=== PATIENT | male | born 1995 | race Caucasian/White ===

== ENCOUNTER 2017-01-13 14:49 | Emergency (ER) | payer BC ==
[2017-01-13 15:02] VITALS: BP 141/81
--- NOTE | 2017-01-13 15:27 | EDM.PDOC ---
ED HPI GENERAL MEDICAL PROBLEM - General Chief Complaint: General Stated Complaint: ABCESS Time Seen by Provider: 01/13/17 15:10 Source of Information: Reports: Patient History Limitations: Reports: No limitations - History of Present Illness INITIAL COMMENTS - FREE TEXT/NARRATIVE: HISTORY AND PHYSICAL: History of present illness: [Patient comes to the emergency room with a complaint of an abscess to his right buttock. He experienced this in February 2016 and it resolves completely with antibiotics. He was recommended to followup for further evaluation with a surgeon which he failed to do since he had resolution with antibiotics. He states that pain and swelling to the same area began again on January 11. He has not had any fever or chills nausea or vomiting. Tylenol and ibuprofen are not helping the pain. No other abscesses.] Review of systems: As per history of present illness and below otherwise all systems reviewed and negative. Past medical history: As per history of present illness and as reviewed below otherwise noncontributory. Surgical history: As per history of present illness and as reviewed below otherwise noncontributory. Social history: No reported history of drug or alcohol abuse. Family history: As per history of present illness and as reviewed below otherwise noncontributory. Physical exam: HEENT: Atraumatic, normocephalic. Rectal: Examination of his buttocks shows a 4 cm long by 1 cm wide area of swelling and tenderness, consistent with abscess. No erythema is appreciated. He is exquisitely tender with palpation. This does not extend to the rectum. There is no area of fluctuance or head to the abscess. Extremities: Neurovascular unremarkable. Neuro: Awake, alert, oriented. Motor and sensory unremarkable throughout. Exam nonfocal. Impression: [Perirectal abscess] Plan: [Start Bactrim DS BID x 10 days. 0 RF's. Offered Rocephin injection which patient declines. Tylenol/ibuprofen. He is scheduled by ER staff to followup with the surgeon tomorrow. He is in agreement with today's plan. all of his questions are answered and concerns are addressed.] Definitive disposition and diagnosis as appropriate pending reevaluation and review of above. Rectal Pain Score (Numeric/FACES): 6 - Related Data Allergies Allergy/AdvReac Type Severity Reaction Status Date / Time No Known Allergies Allergy Verified 01/13/17 14:58 Home Meds: Home Meds . [No Known Home Meds] 02/13/16 [History] Past Medical History - Past Health History Medical/Surgical History: Denies Medical/Surgical History HEENT History: Reports: None Cardiovascular History: Reports: None Respiratory History: Reports: None Gastrointestinal History: Reports: None Genitourinary History: Reports: None Musculoskeletal History: Reports: None Neurological History: Reports: None Psychiatric History: Reports: None Endocrine/Metabolic History: Reports: None Hematologic History: Reports: None Oncologic (Cancer) History: Reports: None Dermatologic History: Reports: None - Infectious Disease History Infectious Disease History: Reports: None - Past Surgical History Head Surgeries/Procedures: Reports: None Social & Family History - Family History Family Medical History: Noncontributory - Tobacco Use Smoking Status *Q: Current Every Day Smoker Years of Tobacco use: 4 Packs/Tins Daily: 1 - Caffeine Use Caffeine Use: Reports: Coffee - Recreational Drug Use Recreational Drug Use: No ED ROS GENERAL - Review of Systems Review Of Systems: ROS reveals no pertinent complaints other than HPI. ED EXAM, GENERAL - Physical Exam Exam: See Below Course - Vital Signs Last Recorded V/S: Last Vital Signs Temp 98.8 F 01/13/17 14:58 Pulse 94 01/13/17 14:58 Resp 16 01/13/17 14:58 BP 141/81 H 01/13/17 14:58 Pulse Ox 96 01/13/17 14:58 Departure - Departure Time of Disposition: 15:20 Disposition: Home, Self-Care 01 Condition: good Clinical Impression: Perirectal abscess Instructions: Perirectal Abscess Referrals: PCP,None [Primary Care Provider] - Forms: ED Department Discharge Additional Instructions: YOU HAVE AN APPOINTMENT SCHEDULED AT THE GENERAL SURGERY DEPARTMENT IN THE [facility] ON JANUARY 14, 2017 AT 1:30PM WITH DR JAMES. PHONE NUMBER [phone] The following information is given to patients seen in the emergency department who are being discharged to home. This information is to outline your options for follow-up care. We provide all patients seen in our emergency department with a follow-up referral. The need for follow-up, as well as the timing and circumstances, are variable depending upon the specifics of your emergency department visit. If you don't have a primary care physician on staff, we will provide you with a referral. We always advise you to contact your personal physician following an emergency department visit to inform them of the circumstance of the visit and for follow-up with them and/or the need for any referrals to a consulting specialist. The emergency department will also refer you to a specialist when appropriate. This referral assures that you have the opportunity for follow-up care with a specialist. All of these measure are taken in an effort to provide you with optimal care, which includes your follow-up. Under all circumstances we always encourage you to contact your private physician who remains a resource for coordinating your care. When calling for follow-up care, please make the office aware that this follow-up is from your recent emergency room visit. If for any reason you are refused follow-up, please contact the [facility] emergency department at and asked to speak to the emergency department charge nurse. [facility] Specialty Care- General Surgery Professional [address], [address] [place] [address] Followup with a local primary care provider in the next 24-48 hours. Return to ER as needed as discussed. Take antibiotics as prescribed. Tylenol or ibuprofen as needed for discomfort.
== END 2017-01-13 15:39 | disposition home or self-care (01) ==
LOC: MW.ED 14:49
DX: K61.2 Anorectal abscess (principal); F17.210 Nicotine dependence, cigarettes, uncomplicated
CPT/HCPCS: 99282; 99283

== ENCOUNTER 2017-01-15 07:45 | Day surgery (SDC) | payer BC ==
--- NOTE | 2017-01-15 07:49 | PCM.PREANE ---
Preanesthetic Assessment - ANESTHESIA/TRANSFUSION/FAMILY HX Anesthesia/Transfusion History: No Prior Anesthesia Family History of Anesthesia Reaction: No - REVIEW OF SYSTEMS Constitutional: Reports: no symptoms STAFF CLIMATE SCIENTIST: Reports: no symptoms Respiratory: Reports: no symptoms Cardiovascular: Reports: no symptoms GI: Reports: no symptoms - PHYSICAL ASSESSMENT Height: 1.8 m Weight: 77.111 kg ASA Class: 2 Mental Status: alert & oriented x3 Airway Class: Mallampati = 2 Dentition: Reports: normal dentition ROM/Head Extension: full Respiratory Status: lungs clear to auscultation bilaterally Cardiovascular Status: regular rate & rhythm, normal S1, S2, no murmur - ALLERGIES Allergies/Adverse Reactions: Allergies Allergy/AdvReac Type Severity Reaction Status Date / Time No Known Allergies Allergy Verified 01/13/17 14:58 - BLOOD Blood Available: No - ANESTHESIA PLAN Preop Beta Jacky: No Anesthesia Type Planned: general anesthesia - ACKNOWLEDGEMENTS Pt an appropriate candidate for the planned anesthesia: Yes Alternatives and risks of anesthesia discussed w pt/guardian: Yes Pt/Guardian understands and agree with anesthesia plan: Yes PreAnesthesia Questionnaire - Past Health History Medical/Surgical History: Denies Medical/Surgical History HEENT History: Reports: None Cardiovascular History: Reports: None Respiratory History: Reports: None Gastrointestinal History: Reports: None Genitourinary History: Reports: None Musculoskeletal History: Reports: Fracture Other Musculoskeletal History: fx arm as a child Neurological History: Reports: None Psychiatric History: Reports: None Endocrine/Metabolic History: Reports: None Hematologic History: Reports: None Oncologic (Cancer) History: Reports: None Dermatologic History: Reports: None - Infectious Disease History Infectious Disease History: Reports: None - Past Surgical History Head Surgeries/Procedures: Reports: None - SUBSTANCE USE Smoking Status *Q: Current Every Day Smoker Tobacco Use Within Last Twelve Months: Cigarettes Recreational Drug Use History: No Recreational Drug Type: Reports: Marijuana/Hashish Recreational Drug Last Use: states last smoked marijuana 5 months ago - HOME MEDS Home Medications: Home Meds Hydrocodone/Acetaminophen [Hydrocodon-Acetaminophen 5-325] 1 tab PO ASDIRECTED PRN 01/14/17 [History] Sulfamethoxazole/Trimethoprim [Sulfamethoxazole-Tmp Ds Tablet] 1 tab PO BID 07/25 [History]
[2017-01-15] MEDS ORDERED: Lactated Ringers 1,000 ML IV SCH ×2 (08:00→10:15)
[2017-01-15] MEDS ORDERED: fentaNYL 100 MCG/2 ML SDV ONE (09:16)
[2017-01-15] MEDS: fentaNYL 100 MCG/2 ML SDV IVPUSH PRN ×4 (09:18→10:46)
[2017-01-15] MEDS ORDERED: Bupivacaine 0.5% 30 ML SDV ONE (09:29)
[2017-01-15] MEDS ORDERED: Acetaminophen/HYDROcodone 325-5 MG Tab PO PRN (10:15)
[2017-01-15] MEDS ORDERED: Morphine 10 MG/ML Syringe IVPUSH PRN (10:15)
--- NOTE | 2017-01-15 10:22 | PCM.OPNOTE ---
- General Post-Op/Procedure Note Date of Surgery/Procedure: 01/15/17 Operative Procedure(s): I & D left perianal abscess Pre Op Diagnosis: Left perianal abscess Anesthesia Technique: General LMA (ASA II) Primary Surgeon: Federico Wren Fluid Replacement, Intraop: 1,150 EBL in mLs: 15 Condition: Good Free Text/Narrative:: Dictation [id number]
--- NOTE | 2017-01-15 11:17 | PCM.POSTAN ---
POST ANESTHESIA ASSESSMENT - MENTAL STATUS Mental Status: alert, oriented - RESPIRATORY Respiratory Status: respiratory rate WNL, airway patent, O2 saturation stable - CARDIOVASCULAR CV Status: pulse rate WNL, blood pressure stable - GASTROINTESTINAL GI Status: no symptoms - POST OP HYDRATION Hydration Status: adequate & stable
[2017-01-15 11:37] VITALS: BP 139/86
--- NOTE | 2017-01-15 11:56 | PCM48HPAN ---
Post Anesthesia Note - EVALUATION WITHIN 48HRS OF ANESTHETIC Vital Signs in Normal Range: Yes Patient Participated in Evaluation: Yes Respiratory Function Stable: Yes Airway Patent: Yes Cardiovascular Function Stable: Yes Hydration Status Stable: Yes Pain Control Satisfactory: Yes Nausea and Vomiting Control Satisfactory: Yes Mental Status Recovered: Yes
--- NOTE | 2017-01-15 13:49 | OR ---
SURGEON: Federico Wrne M.D. DATE OF PROCEDURE: 01/15/2017 OPERATION PERFORMED: Incision and drainage of left perianal abscess. ASSET PROTECTION MANAGER: Dr. Brown. ANESTHESIA: General LMA. ASA CLASSIFICATION: II. PREOPERATIVE DIAGNOSIS: Left perianal abscess. POSTOPERATIVE DIAGNOSIS: Left perianal abscess. ESTIMATED BLOOD LOSS: 15 mL. INTRAOPERATIVE FLUID REPLACEMENT: 1150 mL. DESCRIPTION OF PROCEDURE: The patient was taken to the operating room and placed on the operating table in the supine position. Time-out was called for appropriate identification of the patient and procedure. Thigh-high TEDs and sequential compression boots were placed. Following satisfactory attainment of general anesthesia with placement of an LMA, the patient was placed in lithotomy position. The perineum was prepped with Betadine solution. Sterile drapes were applied. Skin incision was made directly over the abscess cavity on the left buttock and deepened through the subcutaneous tissue. All loculations were broken up. Aerobic and anaerobic cultures were obtained. The wound was irrigated with sterile saline solution. One-inch [place] drain was placed into the depth of the wound and secured to the skin with interrupted 2-0 nylon sutures. The wound was inspected for hemostasis and there was some bleeding present, but given the abscess cavity this will subside. The site was then dressed with fluffs, held in place with mesh panties. Sponge, needle, and instrument counts were all correct. The patient tolerated the procedure well. Following emergence from anesthesia and extubation, he was taken to recovery room in stable condition. SHAHID / LEROY /[id number]
== END 2017-01-15 11:45 | disposition home or self-care (01) ==
LOC: MW.SDS 07:45
PROVIDERS: ATTEND Surgery
PROC: 0D9QXZZ Drainage of Anus, External Approach (ICD-10-PCS; principal; 2017-01-15)
DX: K61.0 Anal abscess (principal); F17.210 Nicotine dependence, cigarettes, uncomplicated
CPT/HCPCS: 46050; 87070; 87075; 87205; J3010; J7120; 00902

== ENCOUNTER 2017-02-26 13:12 | Emergency (ER) | payer BC ==
--- NOTE | 2017-02-26 13:29 | EDM.PDOC ---
ED HPI Trauma - General Chief Complaint: Lower Extremity Injury/Pain Stated Complaint: hurt right ankle Time Seen by Provider: 02/26/17 13:15 Source: Reports: Patient History Limitations: Reports: No limitations - History of Present Illness INITIAL COMMENTS - FREE TEXT/NARRATIVE: History of present illness: [22-year-old now presenting status post fall while skateboarding. Patient describes a rolling ankle injury where he heard a very loud pop and subsequently was painful to bear weight on his right foot. Patient comes in with concerns that he has fractured his ankle.] Review of systems: As per history of present illness and below otherwise all systems reviewed and negative. Past medical history: As per history of present illness and as reviewed below otherwise noncontributory. Surgical history: As per history of present illness and as reviewed below otherwise noncontributory. Social history: No reported history of drug or alcohol abuse. Family history: As per history of present illness and as reviewed below otherwise noncontributory. Physical exam: HEENT: Atraumatic, normocephalic, pupils reactive, negative for conjunctival pallor or scleral icterus, mucous membranes moist, throat clear, neck supple, nontender, trachea midline. Lungs: Clear to auscultation, breath sounds equal bilaterally, chest nontender. Heart: S1S2, regular, negative for clicks, rubs, or JVD. Abdomen: Soft, nondistended, nontender. Negative for masses or hepatosplenomegaly. Negative for costovertebral tenderness. Pelvis: Stable nontender. Genitourinary: Deferred. Rectal: Deferred. Extremities: Atraumatic save some edema and ecchymosis noted on external malleolus of right foot. Otherwise negative for cords or calf pain. Neurovascular unremarkable. Neuro: Awake, alert, oriented. Cranial nerves II through XII unremarkable. Cerebellum unremarkable. Motor and sensory unremarkable throughout. Exam nonfocal. Patient has pain with passive range of motion to right ankle, dorsiflexion and plantar flexion are intact but not without significant discomfort. Trace negative for acute fracture Diagnostics: [X-ray right ankle] Therapeutics: [] Impression: [Ankle sprain] Plan: [Reinaldo wrap OTC pain meds] Definitive disposition and diagnosis as appropriate pending reevaluation and review of above. Allergies/ADRs: Allergies No Known Allergies Allergy (Verified 02/26/17 13:18) Home Medications: Ambulatory Orders . [No Known Home Meds] 02/26/17 [Confirmed 02/26/17] Past Medical History - Past Health History Medical/Surgical History: Denies Medical/Surgical History HEENT History: Reports: None Cardiovascular History: Reports: None Respiratory History: Reports: None Gastrointestinal History: Reports: None Genitourinary History: Reports: None Musculoskeletal History: Reports: Fracture Other Musculoskeletal History: fx arm as a child Neurological History: Reports: None Psychiatric History: Reports: None Endocrine/Metabolic History: Reports: None Hematologic History: Reports: None Immunologic History: Reports: None Oncologic (Cancer) History: Reports: None Dermatologic History: Reports: None - Infectious Disease History Infectious Disease History: Reports: None - Past Surgical History Head Surgeries/Procedures: Reports: None Social & Family History - Family History Family Medical History: Noncontributory - Tobacco Use Smoking Status *Q: Current Every Day Smoker Years of Tobacco use: 5 Packs/Tins Daily: 1 Second Hand Smoke Exposure: Yes - Caffeine Use Caffeine Use: Reports: Coffee Caffeine Use Comment: everyday - Recreational Drug Use Recreational Drug Use: No Drug Use in Last 12 Months: Yes Recreational Drug Type: Reports: Marijuana/Hashish Recreational Drug Use Frequency: Not Used In Over 4 Months Recreational Drug Last Use: states last smoked marijuana 5 months ago Review of Systems - Review of Systems Review Of Systems: See Below (The history of present illness) Trauma Exam - Physical Exam Exam: See Below (See history of present illness) Course - Vital Signs Last Recorded V/S: Last Vital Signs Temp 36.9 C 02/26/17 13:16 Pulse 82 02/26/17 13:16 Resp 16 02/26/17 13:16 BP 134/62 02/26/17 13:16 Pulse Ox 97 02/26/17 13:16 Departure - Departure Time of Disposition: 14:01 Disposition: Home, Self-Care 01 Condition: good Clinical Impression: Ankle sprain Instructions: Ankle Sprain, [id number], Crutch Use, [id number] Forms: ED Department Discharge Additional Instructions: The following information is given to patients seen in the emergency department who are being discharged to home. This information is to outline your options for follow-up care. We provide all patients seen in our emergency department with a follow-up referral. The need for follow-up, as well as the timing and circumstances, are variable depending upon the specifics of your emergency department visit. If you don't have a primary care physician on staff, we will provide you with a referral. We always advise you to contact your personal physician following an emergency department visit to inform them of the circumstance of the visit and for follow-up with them and/or the need for any referrals to a consulting specialist. The emergency department will also refer you to a specialist when appropriate. This referral assures that you have the opportunity for follow-up care with a specialist. All of these measure are taken in an effort to provide you with optimal care, which includes your follow-up. Under all circumstances we always encourage you to contact your private physician who remains a resource for coordinating your care. When calling for follow-up care, please make the office aware that this follow-up is from your recent emergency room visit. If for any reason you are refused follow-up, please contact the [facility] Emergency Department at and asked to speak to the emergency department charge nurse. Your ankle is not fractured but has sustained some soft tissue injury Please use rest ice compression with Reinaldo wrap and elevation as much is possible this first week use ice no longer than 20 minutes at a time with at least 20 minutes of her break to prevent any sort of skin damage such as frostbite Followup the primary care provider one to 2 days Return to ED as needed as discussed
--- NOTE | 2017-02-26 13:50 | CR ---
EXAMINATION: Right ankle HISTORY: Pain COMPARISON: None TECHNIQUE: 3 views FINDINGS/IMPRESSION: There is no acute osseous abnormality, dislocation, or fracture identified. Bon e mineralization and joint spaces appear normal. No significant soft tissue swelling.
[2017-02-26 14:18] VITALS: BP 125/58
== END 2017-02-26 14:12 | disposition home or self-care (01) ==
LOC: MW.ED 13:12
DX: S93.401A Sprain of unspecified ligament of right ankle, initial encounter (principal); V00.131A Fall from skateboard, initial encounter
CPT/HCPCS: 73610-26-RT; 73610-RT; 99282; 99283

== ENCOUNTER 2019-09-01 08:47 | Day surgery (SDC) | payer BC ==
[~2019-09-01 08:47] MED LIST: Lactated Ringers 1,000 ML IV SCH
--- NOTE | 2019-09-01 09:26 | PCM.PREANE ---
Preanesthetic Assessment - Anesthesia/Transfusion/Family Hx Anesthesia History: Prior Anesthesia Without Reaction Family History of Anesthesia Reaction: No Transfusion History: No Prior Transfusion(s) Intubation History: Unknown - Review of Systems General: No Symptoms Pulmonary: No Symptoms Cardiovascular: No Symptoms Gastrointestinal: No Symptoms Neurological: No Symptoms Other: Reports: None - Physical Assessment NPO Status Date: 08/31/19 NPO Status Time: 21:30 Vital Signs: Last Vital Signs Temp 36.6 C 09/01/19 09:00 Pulse 64 09/01/19 09:00 Resp 16 09/01/19 09:00 BP 115/84 09/01/19 09:00 Pulse Ox 97 09/01/19 09:00 Height: 5 ft 11 in Weight: 77.111 kg ASA Class: 2 Mental Status: Alert & Oriented x3 Airway Class: Mallampati = 1 Dentition: Reports: Normal Dentition (small chip front upper incisor) Thyro-Mental Finger Breadths: 3 Mouth Opening Finger Breadths: 2 ROM/Head Extension: Full Lungs: Clear to Auscultation, Normal Respiratory Effort Cardiovascular: Regular Rate, Regular Rhythm - Allergies Allergies/Adverse Reactions: Allergies Allergy/AdvReac Type Severity Reaction Status Date / Time No Known Allergies Allergy Verified 08/30/19 11:19 - Blood Blood Available: No - Anesthesia Plan Pre-Op Medication Ordered: None - Acknowledgements Anesthesia Type Planned: General Anesthesia Pt an Appropriate Candidate for the Planned Anesthesia: Yes Alternatives and Risks of Anesthesia Discussed w Pt/Guardian: Yes Pt/Guardian Understands and Agrees with Anesthesia Plan: Yes PreAnesthesia Questionnaire - Past Health History Medical/Surgical History: Denies Medical/Surgical History HEENT History: Reports: None Cardiovascular History: Reports: None Respiratory History: Reports: None Gastrointestinal History: Reports: Other (See Below) Other Gastrointestinal History: GERD in the past- not for 5 years since he quit "chew", recurrent perirectal abscess Genitourinary History: Reports: None Musculoskeletal History: Reports: Fracture Other Musculoskeletal History: hx of fx arm as a child Neurological History: Reports: None Psychiatric History: Reports: None Endocrine/Metabolic History: Reports: None Hematologic History: Reports: None Immunologic History: Reports: None Oncologic (Cancer) History: Reports: None Dermatologic History: Reports: None - Infectious Disease History Infectious Disease History: Reports: None - Past Surgical History Head Surgeries/Procedures: Reports: None GI Surgical History: Reports: Other (See Below) Other GI Surgeries/Procedures: I&D perirectal abscess 2-3 years ago under general anesthesia - SUBSTANCE USE Smoking Status *Q: Current Every Day Smoker (1ppd) Tobacco Use Within Last Twelve Months: Cigarettes Recreational Drug Use History: Yes - HOME MEDS Home Medications: Home Meds . [No Known Home Meds] 02/26/17 [History] - CURRENT (IN HOUSE) MEDS Current Meds: Current Medications Lactated Ringer's (Ringers, Lactated) 1,000 mls @ 125 mls/hr IV ASDIRECTED [facility] Last Admin: 09/01/19 09:21 Dose: 125 mls/hr
[2019-09-01] MEDS ORDERED: Midazolam 1 MG/ML 2 ML SDV ONE (09:37)
[2019-09-01] MEDS ORDERED: Propofol 200 MG/20 ML SDV ONE (09:37)
[2019-09-01] MEDS ORDERED: fentaNYL 100 MCG/2 ML SDV ONE (09:37)
[2019-09-01] MEDS ORDERED: Lidocaine 2% 5 ML SDV ONE (09:40)
[2019-09-01] MEDS ORDERED: Ketorolac 30 MG/ML SDV ONE (09:40)
[2019-09-01] MEDS ORDERED: Ondansetron 4 MG/2 ML SDV ONE (09:40)
[2019-09-01] MEDS ORDERED: Dexamethasone 4 MG/ML 5 ML MDV ONE (09:40)
[2019-09-01] MEDS ORDERED: Glycopyrrolate 0.2 MG/ML SDV ONE (09:40)
[2019-09-01] MEDS ORDERED: Acetaminophen/HYDROcodone 325-5 MG Tab PO PRN (10:46)
--- NOTE | 2019-09-01 10:47 | PCM.OPNOTE ---
- General Post-Op/Procedure Note Date of Surgery/Procedure: 09/01/19 Operative Procedure(s): Incision and drainage, recurrent, left perianal abscess Pre Op Diagnosis: Recurrent left perianal abscess Post-Op Diagnosis: Same Anesthesia Technique: General LMA (ASA II) Primary Surgeon: Federico Wren Fluid Replacement, Intraop: 300 EBL in mLs: 20 Condition: Good Free Text/Narrative:: DICTATION [id number] CPT CODE 28159
[2019-09-01] MEDS ORDERED: Lactated Ringers 1,000 ML IV SCH (11:00)
--- NOTE | 2019-09-01 11:06 | PCM.POSTAN ---
POST ANESTHESIA ASSESSMENT - MENTAL STATUS Mental Status: Alert, Oriented - VITAL SIGNS Vital Signs: Last Vital Signs Temp 36.3 C 09/01/19 10:40 Pulse 58 L 09/01/19 11:00 Resp 17 09/01/19 11:00 BP 137/93 H 09/01/19 11:00 Pulse Ox 98 09/01/19 11:00 - RESPIRATORY Respiratory Status: Respiratory Rate WNL, Airway Patent, O2 Saturation Stable - CARDIOVASCULAR CV Status: Pulse Rate WNL, Blood Pressure Stable - GASTROINTESTINAL GI Status: No Symptoms - PAIN Pain Score: 5 - POST OP HYDRATION Hydration Status: Adequate & Stable - OBSERVATIONS Free Text/Narrative:: no anesthesia problems
--- NOTE | 2019-09-01 11:10 | OR ---
SURGEON: Federico Wren M.D. DATE OF PROCEDURE: 09/01/2019 OPERATION PERFORMED: Incision and drainage, recurrent left perianal abscess. PRIMARY SURGEON: Federico Wren MD. ANESTHESIA: General LMA. ASA CLASSIFICATION: II. PREOPERATIVE DIAGNOSIS: Recurrent left perianal abscess. POSTOPERATIVE DIAGNOSIS: Recurrent left perianal abscess. ESTIMATED BLOOD LOSS: 20 mL. INTRAOPERATIVE FLUID REPLACEMENT: 300 mL of crystalloid. DESCRIPTION OF PROCEDURE: The patient was taken to the operating room and placed on the operating table in the supine position. Time-out was called for appropriate identification of the patient and procedure. Following satisfactory attainment of general anesthesia with placement of an LMA, the patient was placed in lithotomy position. The perineum was sterilely prepped and draped. A skin incision was made over the granulation tissue and deepened into the subcutaneous tissue. No significant purulent drainage was noted, but there was a moderate amount of granulation tissue. All loculations were broken up. Aerobic and anaerobic cultures were obtained and sent for culture, sensitivity, and Gram stain. Bleeding sites were electrocoagulated. The incision was irrigated with sterile saline solution. A large Adams drain was brought to the operating table and cut to appropriate length. This was placed into the abscess cavity and secured with interrupted 2- 0 nylon sutures. The wound was then dressed with fluffs and ABDs and mesh panties. The patient tolerated the procedure well. Following emergence from anesthesia and extubation, he was taken to recovery room in stable condition. SHAHID / LEROY /[id number]
[2019-09-01] MEDS: Morphine 10 MG/ML Syringe IVPUSH PRN ×2 (11:24→12:00)
[2019-09-01 11:29] VITALS: BP 128/70; PULSE 67
--- NOTE | 2019-09-01 11:42 | PCM48HPAN ---
Post Anesthesia Note - EVALUATION WITHIN 48HRS OF ANESTHETIC Vital Signs in Normal Range: Yes Patient Participated in Evaluation: Yes Respiratory Function Stable: Yes Airway Patent: Yes Cardiovascular Function Stable: Yes Hydration Status Stable: Yes Pain Control Satisfactory: Yes Nausea and Vomiting Control Satisfactory: Yes Mental Status Recovered: Yes Vital Signs: Last Vital Signs Temp 36.3 C 09/01/19 11:09 Pulse 67 09/01/19 11:28 Resp 20 09/01/19 11:28 BP 128/70 09/01/19 11:28 Pulse Ox 98 09/01/19 11:28 - COMMENTS/OBSERVATIONS Free Text/Narrative:: no anesthesia problems
== END 2019-09-01 11:52 | disposition home or self-care (01) ==
LOC: MW.SDS 08:47 → EDSTATUS 10:30 → MW.SDS 11:52
PROVIDERS: ATTEND Surgery
DX: K61.0 Anal abscess (principal); F17.210 Nicotine dependence, cigarettes, uncomplicated
CPT/HCPCS: 46050; 87070; 87075; 87205; A9270; J1100; J1885; J2001; J2250; J2270; J2405; J2704; J3010; J3490; J7120

== ENCOUNTER 2020-05-13 09:41 | Emergency (ER) | payer BC ==
[2020-05-13] MEDS ORDERED: Sodium Chloride 0.9% 10 ML Syringe FLUSH PRN (09:54)
[2020-05-13] MEDS ORDERED: Sodium Chloride 0.9% 2.5 ML Syringe FLUSH PRN (09:54)
[2020-05-13] MEDS ORDERED: Ketorolac 15 MG/ML SDV IVPUSH ONE (09:54)
--- NOTE | 2020-05-13 10:10 | EDM.PDOC ---
ED HPI GENERAL MEDICAL PROBLEM - General Chief Complaint: General Stated Complaint: SORE THROAT Time Seen by Provider: 05/13/20 09:43 - History of Present Illness INITIAL COMMENTS - FREE TEXT/NARRATIVE: History of present illness: 25-year-old male presenting with 2 to 3-day history of left-sided dental and jaw pain. Also has jaw swelling to the point that he feels he cannot open his mouth all the way today. He reports that last week he started having dental pain in his tooth has been bothering him, however that got slightly better and now pain has restarted and become more severe. No fevers. Pain with range of motion of the jaw and chewing. Review of systems: As per history of present illness and below otherwise all systems reviewed and negative. Past medical history: As per history of present illness and as reviewed below otherwise noncontributory. Surgical history: As per history of present illness and as reviewed below otherwise noncontributory. Rectal abscess surgery/revision Social history: Daily smoker, occasional alcohol, occasional marijuana Family history: As per history of present illness and as reviewed below otherwise noncontributory. Physical exam: GEN: no acute distress, well appearing HEENT: Atraumatic, normocephalic, mucous membranes moist, limited mouth opening, tender to palpation inferior to the left mandibular angle. Mild fullness. Positive lymphadenopathy. Mild erythema of the gum surrounding posterior lower teeth. No visible abscess. Moderate dental decay throughout Neck: supple, soft tissue tenderness to palpation over the left anterior lymph nodes, no erythema, trachea midline. Lungs: No respiratory distress. Heart: RRR Extremities: Atraumatic. Neurovascularly intact. Neuro: Awake, alert, oriented. Neuro Exam nonfocal. Skin: warm, dry, no lesions Diagnostics: CT soft tissue neck with contrast, labs Therapeutics: Toradol IM MDM: Impression: [] Plan: [] Definitive disposition and diagnosis as appropriate pending reevaluation and review of above. right face Pain Score (Numeric/FACES): 7 - Related Data Allergies Allergy/AdvReac Type Severity Reaction Status Date / Time No Known Allergies Allergy Verified 05/13/20 09:55 Home Meds: Home Meds . [No Known Home Meds] 05/13/20 [History] Past Medical History - Past Health History Medical/Surgical History: Denies Medical/Surgical History HEENT History: Reports: None Cardiovascular History: Reports: None Respiratory History: Reports: None Gastrointestinal History: Reports: Other (See Below) Other Gastrointestinal History: GERD in the past- not for 5 years since he quit "chew", recurrent perirectal abscess Genitourinary History: Reports: None Musculoskeletal History: Reports: Fracture Other Musculoskeletal History: hx of fx arm as a child Neurological History: Reports: None Psychiatric History: Reports: None Endocrine/Metabolic History: Reports: None Hematologic History: Reports: None Immunologic History: Reports: None Oncologic (Cancer) History: Reports: None Dermatologic History: Reports: None - Infectious Disease History Infectious Disease History: Reports: None - Past Surgical History Head Surgeries/Procedures: Reports: None GI Surgical History: Reports: Other (See Below) Other GI Surgeries/Procedures: I&D perirectal abscess 2-3 years ago under general anesthesia Social & Family History - Family History Family Medical History: Noncontributory - Caffeine Use Caffeine Use: Reports: Coffee Caffeine Use Comment: everyday ED ROS GENERAL - Review of Systems Review Of Systems: See Below (See HPI) ED EXAM, GENERAL - Physical Exam Exam: See Below (See HPI) Course - Vital Signs Text/Narrative:: Jaw pain/dental pain/throat pain. Limited mouth opening. No fever. White blood cell count is elevated. CT soft tissue shows early parapharyngeal/peritonsillar abscess on the left side as well as inflammation and probable infection in the left masseter and lymphadenopathy likely reactive. Received IV clindamycin. Discussed with nearest ENT, in [place], [place], who request to have the patient transferred to the emergency department at that hospital and they will see him and perform incision and drainage. Patient kept n.p.o. Last Recorded V/S: Last Vital Signs Temp 97 F 05/13/20 09:56 Pulse 85 05/13/20 09:56 Resp 17 05/13/20 09:56 BP 124/80 05/13/20 09:56 Pulse Ox 100 05/13/20 09:56 - Orders/Labs/Meds Orders: Active Orders 24 hr Category Date Time Status Sodium Chloride 0.9% [Saline Flush] Med 05/13/20 09:54 Active 10 ml FLUSH ASDIRECTED PRN Sodium Chloride 0.9% [Saline Flush] Med 05/13/20 09:54 Active 2.5 ml FLUSH ASDIRECTED PRN Saline Lock Insert [OM.PC] Stat Ot 05/13/20 09:54 Ordered Medication Orders Sodium Chloride (Saline Flush) 10 ml FLUSH ASDIRECTED PRN PRN Reason: Keep Vein Open Last Admin: 05/13/20 10:05 Dose: 10 ml Documented by: WANG Sodium Chloride (Saline Flush) 2.5 ml FLUSH ASDIRECTED PRN PRN Reason: Keep Vein Open Last Admin: 05/13/20 10:05 Dose: 2.5 ml Documented by: WANG Labs: Laboratory Tests 05/13/20 05/13/20 Range/Units 10:05 10:05 WBC 17.48 H (4.0-11.0) K/uL RBC 4.89 (4.50-5.90) M/uL Hgb 15.6 (13.0-17.0) g/dL Hct 46.2 (38.0-50.0) % MCV 94.5 (80.0-98.0) fL MCH 31.9 (27.0-32.0) pg MCHC 33.8 (31.0-37.0) g/dL RDW Std Deviation 44.4 (28.0-62.0) fl RDW Coeff of Lani 13 (11.0-15.0) % Plt Count 200 (150-400) K/uL MPV 9.40 (7.40-12.00) fL Neut % (Auto) 79.1 (48.0-80.0) % Lymph % (Auto) 6.0 L (16.0-40.0) % [place] % (Auto) 14.5 (0.0-15.0) % Eos % (Auto) 0.3 (0.0-7.0) % Baso % (Auto) 0.1 (0.0-1.5) % Neut # (Auto) 13.8 H (1.4-5.7) K/uL Lymph # (Auto) 1.1 (0.6-2.4) K/uL [place] # (Auto) 2.5 H (0.0-0.8) K/uL Eos # (Auto) 0.1 (0.0-0.7) K/uL Baso # (Auto) 0.0 (0.0-0.1) K/uL Nucleated RBC % 0.0 /100WBC Nucleated RBCs # 0 K/uL Sodium 138 (136-148) mmol/L Potassium 3.9 (3.5-5.1) mmol/L Chloride 100 (98-107) mmol/L Carbon Dioxide 26.4 (21.0-32.0) mmol/L BUN 12 (7.0-18.0) mg/dL Creatinine 1.1 (0.8-1.3) mg/dL Est Cr Clr Drug Dosing 107.44 mL/min Estimated GFR (MDRD) > 60.0 ml/min Glucose 115 H (74-106) mg/dL Calcium 9.1 (8.5-10.1) mg/dL Total Bilirubin 0.5 (0.2-1.0) mg/dL AST 19 (15-37) IU/L ALT 16 (14-63) IU/L Alkaline Phosphatase 90 (46-116) U/L Total Protein 7.7 (6.4-8.2) g/dL Albumin 3.6 (3.4-5.0) g/dL Globulin 4.1 H (2.6-4.0) g/dL Albumin/Globulin Ratio 0.9 (0.9-1.6) Meds: Medications Generic Name Dose Route Start Last Admin Trade Name Freq PRN Reason Stop Dose Admin Sodium Chloride 10 ml 05/13/20 09:54 05/13/20 10:05 Saline Flush FLUSH 10 ml ASDIRECTED PRN Administration Keep Vein Open Sodium Chloride 2.5 ml 05/13/20 09:54 05/13/20 10:05 Saline Flush FLUSH 2.5 ml ASDIRECTED PRN Administration Keep Vein Open Discontinued Medications Generic Name Dose Route Start Last Admin Trade Name Freq PRN Reason Stop Dose Admin Clindamycin Phosphate 600 mg/ 50 mls @ 100 mls/hr 05/13/20 10:43 05/13/20 10:59 Premix IV 05/13/20 11:12 100 mls/hr ONETIME ONE Administration Clindamycin Phosphate Confirm 05/13/20 10:54 05/13/20 11:00 Cleocin In D5w Administered 05/13/20 10:55 Not Given Dose 50 mls @ as directed .ROUTE .STK-MED ONE Iopamidol 80 ml 05/13/20 11:18 05/13/20 11:19 Isovue-370 (76%) IVPUSH 05/13/20 11:19 80 ml ONETIME STA Administration Ketorolac Tromethamine 15 mg 05/13/20 09:54 05/13/20 10:05 Toradol IVPUSH 05/13/20 09:55 15 mg ONETIME ONE Administration - Re-Assessments/Exams Free Text/Narrative Re-Assessment/Exam: 05/13/20 12:[address] Josesito Banuelos at [facility], ENT on-call there, as we do not have ENT parks recreation director currently at this facility, and at the closest facility with ENT, in [facility], the ENT was unable to be reached at this time. The case and lab/imaging findings were discussed. He will review the images and call me back in regards to transfer now versus outpatient therapy. Agrees with plan for clindamycin. I discussed this pending recommendation with the patient, who declines to be transferred via ambulance but does agree to transfer via private vehicle, his will drive him. 05/13/20 12:35 Dr. Chacon (located at [place]) called back discussed case, and they request that patient be transferred to [place] emergency department where they will evaluate the patient and likely he will need drainage. They request to keep the patient n.p.o. I did discuss with them that the patient's preference would be transfer via private vehicle, driven by his and that he agrees to go directly to the emergency department, they voiced understanding with the above. They will notify the emergency department staff and emergency physician there as well. This final disposition was also discussed with the patient at this time, who is in agreement and will call his now to come pick him up and bring him to [place] immediately. Call was also placed to [facility] to notify the transfer center as well as ENT physician that transfer was canceled. Departure - Departure Time of Disposition: 12:39 Disposition: DC/Tfer to Acute Hospital 02 Clinical Impression: Parapharyngeal abscess - Discharge Information Referrals: PCP,None [Primary Care Provider] - Forms: ED Department Discharge Sepsis Event Note (ED) - Evaluation Sepsis Screening Result: No Definite Risk - Focused Exam Vital Signs: Vital Signs Temp Pulse Resp BP Pulse Ox 05/13/20 09:56 97 F 85 17 124/80 100 - My Orders Last 24 Hours: My Active Orders 05/13/20 09:54 Sodium Chloride 0.9% [Saline Flush] 10 ml FLUSH ASDIRECTED PRN Sodium Chloride 0.9% [Saline Flush] 2.5 ml FLUSH ASDIRECTED PRN Saline Lock Insert [OM.PC] Stat - Assessment/Plan Last 24 Hours: My Active Orders 05/13/20 09:54 Sodium Chloride 0.9% [Saline Flush] 10 ml FLUSH ASDIRECTED PRN Sodium Chloride 0.9% [Saline Flush] 2.5 ml FLUSH ASDIRECTED PRN Saline Lock Insert [OM.PC] Stat
[2020-05-13] MEDS ORDERED: Clindamycin Phosphate in D5W 600 MG in Premix Bag 1 BAG IV ONE ×2 (10:43)
[2020-05-13 10:44] LABS: BLOOD UREA NITROGEN,BUN 12 mg/dL (7.0-18.0); CARBON DIOXIDE,CO2 26.4 mmol/L (21.0-32.0); CHLORIDE,CL 100 mmol/L (98-107); GLUCOSE RANDOM 115 mg/dL (74-106); POTASSIUM,K 3.9 mmol/L (3.5-5.1); SODIUM,NA 138 mmol/L (136-148)
[2020-05-13] MEDS ORDERED: Clindamycin Phosphate in D5W 50 ML ONE (10:54)
[2020-05-13] MEDS ORDERED: Iopamidol 755 Mg/ML 100 ML Bottle IVPUSH STA (11:18)
--- NOTE | 2020-05-13 11:48 | CT ---
CT neck Technique: Multiple axial sections through the neck were obtained. Intravenous contrast was utilized. Findings: Diffuse soft tissue swelling noted within the left parapharyngeal region. This occurs mostly around the left palatine tonsil. Low density is seen suspicious for small developing abscess measuring about 1.5 cm. Soft tissue swelling and density hypopharynx. Slightly prominent lymph nodes noted within the left neck most likely on an inflammatory basis. Soft tissue swelling and low density is also noted within the left masseter muscle compatible with infection. Numerous dental caries appear to be present cervical spine appears within normal limits. Prevertebral soft tissues and epiglottis appeared normal. Retention cyst is noted within the inferior right maxillary sinus measuring 1.4 cm. Mild mucosal thickening noted within the left maxillary sinus, sphenoid sinus and ethmoid sinuses. Impression: 1. Diffuse soft tissue swelling and early abscess within the left parapharyngeal region mostly around the left palatine tonsil. Findings cause mass-effect upon the hypopharynx. 2. Soft tissue swelling within the left masseter muscle with low density compatible with infection. 3. Numerous dental caries appear to be present. 4. Slightly prominent lymph nodes within the left neck believed to be on an inflammatory basis. Diagnostic code #5 This report was dictated in MDT
[2020-05-13 13:01] VITALS: BP 125/77; PULSE 66
== END 2020-05-13 12:51 ==
LOC: MW.ED 09:41
DX: J39.0 Retropharyngeal and parapharyngeal abscess (principal)
CPT/HCPCS: 36415; 70491; 70491-26; 80053; 85025; 96374; 96375; 99284-25; J1885; J3490; Q9967

== ENCOUNTER 2021-09-14 10:05 | Emergency (ER) | payer SELFPAY ==
--- NOTE | 2021-09-14 11:47 | EDM.PDOC ---
ED HPI GENERAL MEDICAL PROBLEM - General Chief Complaint: Upper Extremity Injury/Pain Stated Complaint: SWOLLEN HAND/RIGHT HAND Time Seen by Provider: 09/14/21 10:35 Source of Information: Reports: Patient History Limitations: Reports: No Limitations - History of Present Illness INITIAL COMMENTS - FREE TEXT/NARRATIVE: HISTORY AND PHYSICAL: History of present illness: Patient is a 26-year-old male who presents emergency room today with concern of hand swelling has been off and on after starting a new job for the past several months. 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 Patient states that prior to starting his new job, he did have an elbow injury and states that he was wrestling for fun with a friend when he felt a popping in his elbow. Patient states that he still has pain in his elbow but has never seen anybody for this. Patient denies any redness or increased warmth of the swelling and states that has been more isolated to the hand. Patient states that at times he will have shooting to his fingertips if he moves his hand a certain way. Patient states he has been taking ibuprofen with mild relief of symptoms. Denies any new trauma or injury. Patient denies fever, chills, chest pain, shortness of breath, or cough. Denies headache, neck stiff ness, change in vision, syncope, or near syncope. Denies nausea, vomiting, abdominal pain, diarrhea, constipation, or dysuria. Has not noted any blood in urine or stool. Patient has been eating and drinking appropriately. Review of systems: As per history of present illness and below otherwise all systems reviewed and negative. Past medical history: As per history of present illness and as reviewed below otherwise noncontributory. Surgical history: As per history of present illness and as reviewed below otherwise noncontributory. Social history: See social history for further information Family history: As per history of present illness and as reviewed below otherwise noncontributory. Physical exam: General: Patient is alert, oriented, and in no acute distress. Patient sitting comfortably on exam table. Vitals stable and reviewed by me. HEENT: Atraumatic, normocephalic, pupils equal and reactive bilaterally, negative for conjunctival pallor or scleral icterus, mucous membranes moist, throat clear, neck supple, nontender, trachea midline. No drooling or trismus noted. No meningeal signs. No hot potato voice noted. Lungs: Clear to auscultation, breath sounds equal bilaterally, chest nontender. Heart: S1S2, regular rate and rhythm without overt murmur Abdomen: Soft, nondistended, nontender. Negative for masses or hepatosplenomegaly. Negative for costovertebral tenderness. Pelvis: Stable nontender. Genitourinary: Deferred. Rectal: Deferred. Skin: Intact, warm, dry. No lesions or rashes noted. Extremities: The right dorsum hand is mild to moderately edematous without erythema or warmth. Patient does have full range of motion of the complete right upper extremity without pain or difficulty. Radial pulses grossly intact of the right upper extremity with capillary refill less than 2 seconds. Patient does have a positive Phalen and Tinel sign of the right upper extremity likely secondary to edema of hand. Patient also has pain to palpation of the medial elbow/medial epicondyle without edema or erythema. Otherwise, atraumatic, negative for cords or calf pain. Neurovascular unremarkable. Neuro: Awake, alert, oriented. Cranial nerves II through XII unremarkable. Cerebellum unremarkable. Motor and sensory unremarkable throughout. Exam nonfocal. Medical Decision Making: Patient is a 26-year-old male presents emergency room today with concern of right hand swelling that has been ongoing for the past several months following an elbow injury that occurred in June. Upon arrival to the ED, patient is vitally stable and well-appearing on exam. He does have edema to the dorsum of the right hand without erythema or increase in warmth. Patient does have a positive Phalen and Tinel's sign. Patient also has pain to palpation of his medial elbow without erythema or crepitus. Patient does have full range of motion of the complete right upper extremity with radial pulse and neurovascularly intact. Patient does not have any indications for infection on exam as he does not have any redness or warmth and the swelling has been off and on for the past several months following an injury. Do suspect that the swelling of his hand may be due to gravitational edema due to injury of his elbow along with starting a new job and now overuse following an injury of his elbow. Will obtain x-ray imaging of his elbow and his hand, and reassess patient. Upon reevaluation of patient, remains vitally stable and comfortable throughout stay in ED. Strict return precautions thoroughly discussed with patient. Discussed importance of follow-up with orthopedic provider. Voices understanding and is agreeable to plan of care. Denies any further questions or concerns at this time. Diagnostics: Right elbow and hand x-ray Therapeutics: Shoulder sling Prescription: None Impression: Right elbow injury, right Hand edema, right Plan: 1. Rest, ice, elevate the affected extremity. You can apply ice 15 minutes on, 15 minutes off. 2. Tylenol and/or Ibuprofen as directed for pain management or discomfort. 3. Follow up with the Orthopedic provider as discussed. Return to the ED as needed and as discussed. Definitive disposition and diagnosis as appropriate pending reevaluation and review of above. right hand Pain Score (Numeric/FACES): 7 - Related Data Allergies Allergy/AdvReac Type Severity Reaction Status Date / Time No Known Allergies Allergy Verified 09/14/21 10:35 Home Meds: Home Meds . [No Known Home Meds] 05/13/20 [History] Past Medical History - Past Health History Medical/Surgical History: Denies Medical/Surgical History HEENT History: Reports: None Cardiovascular History: Reports: None Respiratory History: Reports: None Gastrointestinal History: Reports: Other (See Below) Other Gastrointestinal History: GERD in the past- not for 5 years since he quit "chew", recurrent perirectal abscess Genitourinary History: Reports: None Musculoskeletal History: Reports: Fracture Other Musculoskeletal History: hx of fx arm as a child Neurological History: Reports: None Psychiatric History: Reports: None Endocrine/Metabolic History: Reports: None Hematologic History: Reports: None Immunologic History: Reports: None Oncologic (Cancer) History: Reports: None Dermatologic History: Reports: None - Infectious Disease History Infectious Disease History: Reports: None - Past Surgical History Head Surgeries/Procedures: Reports: None GI Surgical History: Reports: Other (See Below) Other GI Surgeries/Procedures: I&D perirectal abscess 2-3 years ago under general anesthesia Social & Family History - Family History Family Medical History: No Pertinent Family History - Caffeine Use Caffeine Use: Reports: Coffee Caffeine Use Comment: everyday Review of Systems - Review of Systems Review Of Systems: Comprehensive ROS is negative, except as noted in HPI. ED EXAM, GENERAL - Physical Exam Exam: See Below (See dictation) Course - Vital Signs Last Recorded V/S: Last Vital Signs Temp 97.0 F 09/14/21 10:36 Pulse 60 09/14/21 12:45 Resp 18 09/14/21 12:45 BP 138/65 09/14/21 12:45 Pulse Ox 95 09/14/21 12:45 - Orders/Labs/Meds Orders: Active Orders 24 hr Category Date Time Status DME for Discharge [COMM] Stat Oth 09/14/21 11:46 Ordered Departure - Departure Time of Disposition: 11:46 Disposition: Home, Self-Care 01 Condition: Good Clinical Impression: Hand edema Elbow injury Qualifiers: Encounter type: initial encounter Laterality: right Qualified Code(s): S59.901A - Unspecified injury of right elbow, initial encounter - Discharge Information Instructions: How to use a Sling, [id number] Referrals: PCP,None [Primary Care Provider] - Forms: ED Department Discharge Additional Instructions: The following information is given to patients seen in the emergency department who are being discharged to home. This information is to outline your options for follow-up care. We provide all patients seen in our emergency department with a follow-up referral. The need for follow-up, as well as the timing and circumstances, are variable depending upon the specifics of your emergency department visit. If you don't have a primary care physician on staff, we will provide you with a referral. We always advise you to contact your personal physician following an emergency department visit to inform them of the circumstance of the visit and for follow-up with them and/or the need for any referrals to a consulting specialist. The emergency department will also refer you to a specialist when appropriate. This referral assures that you have the opportunity for follow-up care with a specialist. All of these measure are taken in an effort to provide you with optimal care, which includes your follow-up. Under all circumstances we always encourage you to contact your private physician who remains a resource for coordinating your care. When calling for follow-up care, please make the office aware that this follow-up is from your recent emergency room visit. If for any reason you are refused follow-up, please contact the [facility] Emergency Department at and asked to speak to the emergency department charge nurse. [facility] Specialty Care - Orthopedic Clinic Professional Building [address] [place] [address], [address] [place] [id number] Garcia, Orthopedist [facility] [address] [place] [address] Dr Barahona - Dr Garcia - Dr Haskins [facility] at [facility] [address] [place] [address] 1. Rest, ice, elevate the affected extremity. You can apply ice 15 minutes on, 15 minutes off. 2. Tylenol and/or Ibuprofen as directed for pain management or discomfort. 3. Follow up with the Orthopedic provider as discussed. Return to the ED as needed and as discussed. = Sepsis Event Note (ED) - Evaluation Sepsis Screening Result: No Definite Risk - Focused Exam Vital Signs: Vital Signs Temp Pulse Resp BP Pulse Ox 09/14/21 12:45 60 18 138/65 95 09/14/21 10:36 97.0 F 75 18 140/77 98 - My Orders Last 24 Hours: My Active Orders 09/14/21 11:46 DME for Discharge [COMM] Stat - Assessment/Plan Last 24 Hours: My Active Orders 09/14/21 11:46 DME for Discharge [COMM] Stat
[2021-09-14 12:56] VITALS: BP 138/65; PULSE 60
--- NOTE | 2021-09-14 14:57 | CR ---
Indication: Pain swelling Technique: Three-views of the right hand Comparison: No comparison Findings: Normal alignment. No acute fractures are seen. Dictated by Gianna De Santiago MD @ 09/14/2021 2:56:12 PM (Electronically Signed)
--- NOTE | 2021-09-14 14:57 | CR ---
Indication: Pain and swelling. Technique: Three views of the right elbow. Comparison: None Findings: No acute fracture or subluxation is identified. The joint spaces are well maintained. No significant joint effusion is identified. Impression: No acute fracture Dictated by Queta Soliz MD @ 09/14/2021 2:56:05 PM (Electronically Signed)
== END 2021-09-14 12:45 | disposition home or self-care (01) ==
LOC: MW.ED 10:05
DX: S59.901A Unspecified injury of right elbow, initial encounter (principal); R60.0 Localized edema; X58.XXXA Exposure to other specified factors, initial encounter; Y93.72 Activity, wrestling
CPT/HCPCS: 73080-26-RT; 73080-RT; 73130-26-RT; 73130-RT; 99283